=== PATIENT | female | born 1985 | race Caucasian/White ===

== ENCOUNTER 2018-10-18 08:37 | Emergency (ER) | payer OTHER ==
[~2018-10-18] VITALS: Ht 154.9 cm; Wt 109.0 kg
[2018-10-18 09:50] LABS: CLARITY URINE CLOUDY (CLEAR); COLOR URINE YELLOW (YELLOW); KETONES URINE NEGATIVE (NEGATIVE); LEUKOCYTE ESTERASE URINE NEGATIVE (NEGATIVE); NITRITE URINE NEGATIVE (NEGATIVE); OCCULT BLOOD URINE NEGATIVE (NEGATIVE); PH URINE 7.5 (4.5-8.0); PROTEIN URINE NEGATIVE (NEGATIVE); SPECIFIC GRAVITY URINE 1.011 (1.005-1.030); UROBILINOGEN URINE 0.2 E.U./dL (0.2-1.0)
[2018-10-18] MEDS ORDERED: ACETAMINOPHEN 500MG TABLET PO ONE (10:15)
[2018-10-18] MEDS ORDERED: CEFTRIAXONE SODIUM 1 G/VIAL IM ONE (10:45)
[2018-10-18] MEDS ORDERED: LIDOCAINE HCL/PF 1% 10 MG/ML 5ML VIAL IJ ONE (10:45)
[2018-10-18 12:37] VITALS: BP 141/76
== END 2018-10-18 12:41 | disposition home or self-care (01) ==
LOC: ER 08:37
DX: O23.41 Unspecified infection of urinary tract in pregnancy, first trimester (principal); Z3A.11 11 weeks gestation of pregnancy
CPT/HCPCS: 76801; 81003; 81025; 96372; 99284; J0696; J3490

== ENCOUNTER 2018-11-17 23:23 | Emergency (ER) | payer OTHER ==
[~2018-11-17] VITALS: Ht 154.9 cm; Wt 110.0 kg
[2018-11-18] VITALS: BP 124/76
== END 2018-11-18 02:59 | disposition left against medical advice (07) ==
LOC: ER 23:23
DX: Z53.21 Procedure and treatment not carried out due to patient leaving prior to being seen by health care provider (principal)
CPT/HCPCS: 93005